=== PATIENT | female | born 1960 | race African-American/Black ===

== ENCOUNTER 2024-10-04 17:30 | Observation (INO) ==
[2024-10-04] MEDS ORDERED: NovoLIN R (or HumuLIN R) SUBCUT PRN (20:27)
[2024-10-04] MEDS: LR 1,000 ML IV 1,000 ML IV SCH (20:34)
[2024-10-04] MEDS: DILAUDID INJ IVP PRN (20:35)
[2024-10-04] MEDS: LOVENOX INJ 80 MG SYR SC SCH (21:25)
[2024-10-04] MEDS: LUMIGAN OPHTH EACHEYE SCH (22:23)
[2024-10-04] MEDS: ALPHAGAN-P OPHTH 1 DOSE EACHEYE SCH (23:22)
[2024-10-04] MEDS: ZYLOPRIM PO SCH (23:28)
[2024-10-04] MEDS: LIPITOR TAB 20 MG PO SCH (23:28)
[2024-10-04] MEDS: NEURONTIN TAB 600 MG PO SCH (23:28)
[2024-10-04] MEDS: ZESTRIL TAB 5 MG PO SCH (23:28)
--- NOTE | 2024-10-05 00:16 | DR.H&P ---
H&P History & Physical for Day of: H&P Date: 10/04/24 Chief Complaint Chief Complaint: Bi-Lateral lower extremity rest pain History of Present Illness History of Present Illness: This is a 64-year-old female who has had bilateral lower extremity arterial intervention for critical ischemia in both legs in the past. She was seen last week and Ashley Landeros in the emergency room complaining of severe rest pain. CT angiogram obtained showed bilateral superficial femoral artery occlusion. She was seen earlier this week in the office and we were planning arterial intervention of the left leg first and then the right leg. She was given Percocet for pain. We have been seeking preauthorization for the procedure. She called today complaining she had severe pain of both lower extremities that has not taken care of with the p.o. Percocet. She is admitted for observation, pain control and arterial invention of both legs to be done sequentially. Past Medical History Past Medical History: Diabetes, Dyslipidemia, Gout and Hypertension Additional Medical History: HIV + Past Surgical History Surgical History: Family History Family Medical History: Diabetes Mellitus and Hypertension Social History Does patient currently use any type of tobacco product: No Alcohol Use: Occasionally Drug Use: None Medications Home Medications: Home Medications Medication Instructions Recorded Confirmed Type alendronate 70 mg tablet 70 mg PO QWEEK 10/04/24 10/04/24 History allopurinol 100 mg tablet 100 mg PO HS 10/04/24 10/04/24 History aspirin 81 mg tablet,delayed 81 mg PO QDAY 10/04/24 10/04/24 History release atorvastatin 20 mg tablet 20 mg PO QDAY 10/04/24 10/04/24 History bimatoprost 0.01 % eye drops 1 drp ophthalmic (eye) HS 10/04/24 10/04/24 History (Lumigan) brimonidine 0.1 % eye drops 1 drp ophthalmic (eye) BID 10/04/24 10/04/24 History (Alphagan P) cetirizine 10 mg tablet 10 mg PO QDAY PRN 10/04/24 10/04/24 History clopidogrel 75 mg tablet 75 mg PO QDAY 10/04/24 10/04/24 History darunavir 800 mg tablet 800 mg PO QDAY 10/04/24 10/04/24 History dolutegravir 50 mg tablet (Tivicay) 50 mg PO QDAY 10/04/24 10/04/24 History ergocalciferol (vitamin D2) 1,250 1,250 mcg PO QWEEK 10/04/24 10/04/24 History mcg (50,000 unit) capsule ferrous sulfate 325 mg (65 mg 325 mg PO QDAY 10/04/24 10/04/24 History iron) tablet (FeroSul) folic acid 400 mcg tablet 0.4 mg PO QDAY 10/04/24 10/04/24 History gabapentin 600 mg tablet 600 mg PO HS 10/04/24 10/04/24 History lamivudine 100 mg tablet 100 mg PO QDAY 10/04/24 10/04/24 History lisinopril 5 mg tablet 5 mg PO BID 10/04/24 10/04/24 History lubiprostone 8 mcg capsule 8 mcg PO DAILY 10/04/24 10/04/24 History magnesium oxide 400 mg (241.3 mg 400 mg PO QDAY 10/04/24 10/04/24 History magnesium) tablet oxycodone-acetaminophen 5 mg-325 1 tab PO Q6H PRN pain 10/04/24 10/04/24 History mg tablet ritonavir 100 mg tablet 100 mg PO QDAY 10/04/24 10/04/24 History semaglutide 2 mg/dose (8 mg/3 mL) 2 mg subcut WEEKLY 10/04/24 10/04/24 History subcutaneous pen injector (Ozempic) Allergies Allergies Allergy/AdvReac Type Severity Reaction Status Date / Time No Known Drug Allergies Allergy Verified 11/02/21 06:54 Labs Labs: Laboratory POC Glucose (mg/dL) 112 mg/dL (65-99) H 10/04/24 20:20 Review of Systems Constitutional: See HPI Eyes: No Symptoms Reported ENT: No Symptoms Reported Respiratory: No Symptoms Reported Cardiovascular: No Symptoms Reported Gastrointestinal: No Symptoms Reported Genitourinary: No Symptoms Reported Musculoskeletal: No Symptoms Reported Skin: No Symptoms Reported Neurological: No Symptoms Reported Physical Exam Vital Signs: Vital Signs Temperature 97.9 F Pulse Rate [Right Brachial] 81 Respiratory Rate 18 Respiratory Rate 18 Respiratory Rate 18 Blood Pressure [Right Arm] 150/62 O2 Sat by Pulse Oximetry 100 Oriented: Normal, Time, Person and Place Eyes: Normal Ear: Normal Nose: Normal Throat: Normal Respiratory: Clear Throughout Cardiovascular: Normal and Other (Absent distal pulses both ankles) : Normal Auscultation: Bowel Sounds: Normal Palpation: Normal Tenderness: Normal Skin: Normal Musculoskeletal: Normal Psychiatric: Anxiety Mood Description: Anxious Affect: Normal Speech Pattern: Clear and Appropriate Assessment/Plan (1) Atherosclerosis of [place] arteries of extremities with rest pain, left leg: Status: Acute Plan: Patient has already had CAT scan. Will begin therapeutic Lovenox. Pain control with IV Dilaudid and plan arterial intervention first of the week (2) Atherosclerosis of [place] arteries of extremities with rest pain, right leg: Status: Acute Plan: Right leg arterial invention to be done sequentially after the left leg carried out (3) Type 2 diabetes mellitus without complications: Status: Acute Plan: 1800 calorie ADA diet, home meds and sliding scale insulin (4) Essential (primary) hypertension: Status: Acute Plan: home meds (5) Hyperlipidemia: Status: Acute Plan: home meds (6) HIV (human immunodeficiency virus infection): Status: Acute Plan: home meds (7) Gout: Status: Acute Plan: home meds Review H&P Reviewed: Yes Patient was examined?: Yes
[2024-10-05 05:30] LABS: BASOPHILS % (AUTO) 0.8 % (0.2-1.0); EOSINOPHILS # (AUTO) 0.2 x10^3/uL (0.0-0.2); EOSINOPHILS % (AUTO) 3.2 % (0.9-2.9); HEMOGLOBIN 7.8 g/dL (12.0-16.0); LYMPHOCYTES # (AUTO) 1.4 X10^3/uL (1.3-2.9); LYMPHOCYTES % (AUTO) 27.2 % (21.0-51.0); MEAN CORPUSCULAR HEMOGLOBIN 27.7 pg (27.0-34.0); MEAN CORPUSCULAR HGB CONC 33.9 g/dL (33.0-35.0); MEAN CORPUSCULAR VOLUME 81.8 fL (80.0-100.0); MEAN PLATELET VOLUME 7.3 fL (7.4-11.0); MONOCYTES # (AUTO) 0.3 x10^3/uL (0.3-0.8); MONOCYTES % (AUTO) 6.6 % (0.0-13.0); NEUTROPHILS # (AUTO) 3.2 x10^3/uL (2.2-4.8); NEUTROPHILS % (AUTO) 62.2 % (42.0-75.0); PLATELET COUNT 220 X10^3/uL (150.0-450.0); RED BLOOD COUNT 2.81 X10^6/uL (3.5-5.4); RED CELL DISTRIBUTION WIDTH 18.2 % (11.6-16.5); WHITE BLOOD COUNT 5.1 X10^3/uL (3.6-10.0)
[2024-10-05 05:48] LABS: ALANINE AMINOTRANSFERASE 22 Units/L (12-78); ALBUMIN 3.1 g/dL (3.4-5.0); ALKALINE PHOSPHATASE 67 Units/L (46-116); ASPARTATE AMINO TRANSFERASE 21 Units/L (15-37); BLOOD UREA NITROGEN 30 mg/dL (7-18); CALCIUM 9.4 mg/dL (8.5-10.1); CARBON DIOXIDE 29.2 mmol/L (21-32); CHLORIDE 102 mmol/L (98-107); COR CA(FOR HYPOALB) 10.1 mg/dL (8.5-10.1); CREATININE 1.59 mg/dL (0.55-1.02); GLUCOSE 88 mg/dL (65-99); POTASSIUM 4.1 mmol/L (3.5-5.1); SODIUM 139 mmol/L (136-145); TOTAL PROTEIN 7.3 g/dL (6.4-8.2); eGFR NON BLACK RACES 35 (>60)
[2024-10-05] MEDS: MAG-OX TAB PO SCH (06:08)
[2024-10-05] MEDS: ZyrTEC TAB 10 MG PO PRN (06:08)
[2024-10-05] MEDS: LOVENOX INJ 60 MG SYR SC SCH (06:54)
--- NOTE | 2024-10-05 07:58 | RAD ---
EXAM:CHEST, 1 VIEWHISTORY:pre op for left leg surgery; critical ischemiaCOMPARISON:No relevant prior studies were available for comparison at the time of interpretation.TECHNIQUE:CHEST, 1 VIEWFINDINGS:Chest:Lines and tubes: NoneMediastinum: Cardiac and mediastinal shadow is within normal limits for size and contour.Pulmonary vessels: No pulmonary vascular congestion.Lung [place]: No suspicious airspace opacity.Pleura: No effusion. No pneumothorax.Bones and soft tissues: No acute osseous or soft tissue abnormality.IMPRESSION:1. No acute cardiopulmonary abnormalityTHIS IS AN ELECTRONICALLY VERIFIED FINAL REPORT10/05/2024 7:54 AM - Electronically signed by Adriano Blue MD
[2024-10-05] MEDS: ASPIRIN EC 81 MG PO SCH (08:55)
[2024-10-05] MEDS: HEMOCYTE PLUS PO SCH (08:55)
[2024-10-05] MEDS: PLAVIX PO SCH (08:55)
[2024-10-05] MEDS: ALPHAGAN P 0.15% OPHTH SOLN AFFEYE SCH (08:55)
[2024-10-05] MEDS: PATIENT'S HOME MEDICATION PO SCH ×6 (10:10→10:11)
[2024-10-05 20:35] VITALS: BMI 20.5
[2024-10-05] MEDS: SNACK - Diabetic Appropriate PO SCH (21:27)
[2024-10-06 06:12] LABS: BASOPHILS % (AUTO) 0.8 % (0.2-1.0); EOSINOPHILS # (AUTO) 0.2 x10^3/uL (0.0-0.2); EOSINOPHILS % (AUTO) 2.9 % (0.9-2.9); HEMATOCRIT 22.5 % (36.0-47.0); HEMOGLOBIN 7.5 g/dL (12.0-16.0); LYMPHOCYTES # (AUTO) 1.7 X10^3/uL (1.3-2.9); LYMPHOCYTES % (AUTO) 27.4 % (21.0-51.0); MEAN CORPUSCULAR HEMOGLOBIN 27.4 pg (27.0-34.0); MEAN CORPUSCULAR HGB CONC 33.4 g/dL (33.0-35.0); MEAN PLATELET VOLUME 7.7 fL (7.4-11.0); MONOCYTES # (AUTO) 0.3 x10^3/uL (0.3-0.8); MONOCYTES % (AUTO) 5.1 % (0.0-13.0); NEUTROPHILS # (AUTO) 3.9 x10^3/uL (2.2-4.8); NEUTROPHILS % (AUTO) 63.8 % (42.0-75.0); PLATELET COUNT 243 X10^3/uL (150.0-450.0); RED BLOOD COUNT 2.74 X10^6/uL (3.5-5.4); RED CELL DISTRIBUTION WIDTH 17.9 % (11.6-16.5); WHITE BLOOD COUNT 6.1 X10^3/uL (3.6-10.0)
[2024-10-06 06:26] LABS: ALANINE AMINOTRANSFERASE 21 Units/L (12-78); ALBUMIN 2.9 g/dL (3.4-5.0); ALKALINE PHOSPHATASE 74 Units/L (46-116); ASPARTATE AMINO TRANSFERASE 23 Units/L (15-37); BLOOD UREA NITROGEN 30 mg/dL (7-18); CARBON DIOXIDE 28.5 mmol/L (21-32); CHLORIDE 102 mmol/L (98-107); COR CA(FOR HYPOALB) 9.9 mg/dL (8.5-10.1); CREATININE 1.59 mg/dL (0.55-1.02); GLUCOSE 85 mg/dL (65-99); POTASSIUM 4.3 mmol/L (3.5-5.1); SODIUM 139 mmol/L (136-145); TOTAL PROTEIN 7.2 g/dL (6.4-8.2); eGFR NON BLACK RACES 35 (>60)
[2024-10-06] MEDS ORDERED: PATIENT'S HOME MEDICATION PO PRN (08:56)
[2024-10-06] MEDS: PATIENT'S HOME MEDICATION PO SCH ×6 (09:40→20:44)
[2024-10-06] MEDS: MAALOX or MYLANTA PO PRN (10:53)
[2024-10-06 16:39] LABS: HEMATOCRIT 22.2 % (36.0-47.0); HEMOGLOBIN 7.5 g/dL (12.0-16.0)
--- NOTE | 2024-10-06 23:09 | NOTE.SOAP ---
Soap Note Note for Day of Date of Exam: 10/05/24 Subjective Data Subjective Data: Patient discussed with nursing services. Pain under better control with IV narcotics. Objective Data Temperature: 98.0 F Pulse Rate: 94 Respiratory Rate: 18 Blood Pressure: 150/80 O2 Sat by Pulse Oximetry: 93 Objective Data: Pain improved with administration of IV narcotics. Leg hurts the most is the left. This is why she was seen in the emergency room in [place] recently. Assessment Assessment: Documented bilateral superficial femoral artery occlusions consistent with rest pain bilaterally. Plan Plan: Tentatively plan intervention of the left leg on TuesdayOctober 08
--- NOTE | 2024-10-06 23:14 | NOTE.SOAP ---
Soap Note Note for Day of Date of Exam: 10/06/24 Subjective Data Subjective Data: Pain improved but main complaint is the left leg consistent with rest pain. Known bilateral superficial femoral artery occlusions. Objective Data Temperature: 98.0 F Pulse Rate: 94 Blood Pressure: 150/80 O2 Sat by Pulse Oximetry: 93 Objective Data: Both feet cool to touch , no tissue loss, no palpable ankle pulses either leg Assessment Assessment: Bilateral lower extremity rest pain with known bilateral superficial femoral artery occlusions Plan Plan: Continue Lovenox and plan an intervention of the left leg first on October 08
[2024-10-07 05:50] LABS: BASOPHILS % (AUTO) 0.6 % (0.2-1.0); EOSINOPHILS # (AUTO) 0.1 x10^3/uL (0.0-0.2); EOSINOPHILS % (AUTO) 1.5 % (0.9-2.9); HEMOGLOBIN 7.8 g/dL (12.0-16.0); LYMPHOCYTES # (AUTO) 2.2 X10^3/uL (1.3-2.9); LYMPHOCYTES % (AUTO) 29.9 % (21.0-51.0); MEAN CORPUSCULAR HEMOGLOBIN 27.5 pg (27.0-34.0); MEAN CORPUSCULAR HGB CONC 33.8 g/dL (33.0-35.0); MEAN CORPUSCULAR VOLUME 81.3 fL (80.0-100.0); MEAN PLATELET VOLUME 7.9 fL (7.4-11.0); MONOCYTES # (AUTO) 0.3 x10^3/uL (0.3-0.8); MONOCYTES % (AUTO) 4.3 % (0.0-13.0); NEUTROPHILS # (AUTO) 4.8 x10^3/uL (2.2-4.8); NEUTROPHILS % (AUTO) 63.7 % (42.0-75.0); PLATELET COUNT 241 X10^3/uL (150.0-450.0); RED BLOOD COUNT 2.83 X10^6/uL (3.5-5.4); RED CELL DISTRIBUTION WIDTH 18.3 % (11.6-16.5); WHITE BLOOD COUNT 7.5 X10^3/uL (3.6-10.0)
[2024-10-07 06:07] LABS: ALANINE AMINOTRANSFERASE 22 Units/L (12-78); ALBUMIN 2.8 g/dL (3.4-5.0); ALKALINE PHOSPHATASE 73 Units/L (46-116); ASPARTATE AMINO TRANSFERASE 30 Units/L (15-37); BLOOD UREA NITROGEN 18 mg/dL (7-18); CALCIUM 9.1 mg/dL (8.5-10.1); CARBON DIOXIDE 29.6 mmol/L (21-32); CHLORIDE 104 mmol/L (98-107); COR CA(FOR HYPOALB) 10.1 mg/dL (8.5-10.1); CREATININE 1.32 mg/dL (0.55-1.02); GLUCOSE 81 mg/dL (65-99); POTASSIUM 4.3 mmol/L (3.5-5.1); SODIUM 140 mmol/L (136-145); TOTAL PROTEIN 7.1 g/dL (6.4-8.2); eGFR NON BLACK RACES 43 (>60)
[2024-10-07] MEDS ORDERED: PATIENT'S HOME MEDICATION PO SCH (09:00)
[2024-10-07] MEDS ORDERED: VITAMIN D (1.25MG) PO SCH (09:00)
[2024-10-07] MEDS: HIBICLENS WASH EXT ONE (20:15)
--- NOTE | 2024-10-07 23:10 | NOTE.SOAP ---
Soap Note Note for Day of Date of Exam: 10/07/24 Subjective Data Subjective Data: Patient admitted with bilateral lower extremity rest pain. She has had bilateral arterial revisions in the past. Recent CT angiogram showed shows bilateral superficial femoral artery occlusion. Left side is the worst. Objective Data Temperature: 98.1 F Pulse Rate: 80 Respiratory Rate: 19 Blood Pressure: 146/65 O2 Sat by Pulse Oximetry: 96 Objective Data: Both feet cool to touch. No palpable pulses distally. Palpable femoral pulses bilaterally. No open wounds. Assessment Assessment: Cortical ischemia both legs with bilateral superficial femoral artery occlusion. Plan Plan: Plan arterial invention of the left leg tomorrow with atherectomy, angioplasty possible stenting of the right superficial femoral artery occlusion.
[2024-10-08 04:51] LABS: BASOPHILS # (AUTO) 0.1 X10^3/uL (0.0-0.1); BASOPHILS % (AUTO) 0.8 % (0.2-1.0); EOSINOPHILS # (AUTO) 0.1 x10^3/uL (0.0-0.2); EOSINOPHILS % (AUTO) 1.7 % (0.9-2.9); HEMOGLOBIN 7.1 g/dL (12.0-16.0); LYMPHOCYTES # (AUTO) 1.4 X10^3/uL (1.3-2.9); LYMPHOCYTES % (AUTO) 20.5 % (21.0-51.0); MEAN CORPUSCULAR HEMOGLOBIN 27.4 pg (27.0-34.0); MEAN CORPUSCULAR HGB CONC 33.7 g/dL (33.0-35.0); MEAN CORPUSCULAR VOLUME 81.4 fL (80.0-100.0); MEAN PLATELET VOLUME 7.9 fL (7.4-11.0); MONOCYTES # (AUTO) 0.3 x10^3/uL (0.3-0.8); MONOCYTES % (AUTO) 4.4 % (0.0-13.0); NEUTROPHILS # (AUTO) 4.9 x10^3/uL (2.2-4.8); NEUTROPHILS % (AUTO) 72.6 % (42.0-75.0); PLATELET COUNT 253 X10^3/uL (150.0-450.0); RED BLOOD COUNT 2.58 X10^6/uL (3.5-5.4); RED CELL DISTRIBUTION WIDTH 18.2 % (11.6-16.5); WHITE BLOOD COUNT 6.8 X10^3/uL (3.6-10.0)
[2024-10-08 05:09] LABS: ALANINE AMINOTRANSFERASE 22 Units/L (12-78); ALBUMIN 2.5 g/dL (3.4-5.0); ALKALINE PHOSPHATASE 74 Units/L (46-116); ASPARTATE AMINO TRANSFERASE 31 Units/L (15-37); BLOOD UREA NITROGEN 17 mg/dL (7-18); CALCIUM 8.6 mg/dL (8.5-10.1); CHLORIDE 102 mmol/L (98-107); COR CA(FOR HYPOALB) 9.8 mg/dL (8.5-10.1); CREATININE 1.47 mg/dL (0.55-1.02); GLUCOSE 97 mg/dL (65-99); POTASSIUM 4.4 mmol/L (3.5-5.1); SODIUM 138 mmol/L (136-145); TOTAL PROTEIN 6.6 g/dL (6.4-8.2); eGFR NON BLACK RACES 38 (>60)
[2024-10-08] MEDS: NS 1,000 ML IV 1,000 ML ONE (06:59)
[2024-10-08] MEDS: NS 100 ML IV 100 ML ONE (07:09)
[2024-10-08] MEDS: NS 1,000 ML IV 800 ML IV PRN (07:30)
[2024-10-08] MEDS: VERSED IVP PRN (07:35)
[2024-10-08] MEDS: ZOFRAN INJ 4 MG VIAL IVP PRN (07:37)
[2024-10-08] MEDS: PEPCID 20 MG VIAL IVP PRN (07:39)
[2024-10-08] MEDS: ANCEF VIAL 1 GRAM ONE (07:39)
[2024-10-08] MEDS: REGLAN INJ 10 MG VIAL IVP PRN (07:40)
[2024-10-08] MEDS: ANCEF VIAL 1 GRAM IV PRN (07:44)
[2024-10-08] MEDS: FENTANYL VIAL INJ 100 mcg ONE (07:44)
[2024-10-08] MEDS: DIPRIVAN VIAL 20 ML ONE (07:44)
[2024-10-08] MEDS: PRECEDEX INJ VIAL ONE (07:44)
[2024-10-08] MEDS: PEPCID 20 MG VIAL ONE (07:44)
[2024-10-08] MEDS: VERSED ONE (07:44)
[2024-10-08] MEDS: ZOFRAN INJ 4 MG VIAL ONE (07:44)
[2024-10-08] MEDS: REGLAN INJ 10 MG VIAL ONE (07:44)
[2024-10-08] MEDS: OFIRMEV IV 1000 MG VIAL 1,000 MG/100 ML VIAL IV ONE (07:44)
[2024-10-08] MEDS: DIPRIVAN IVP PRN (07:53)
[2024-10-08] MEDS ORDERED: XYLOCAINE 2 % (PLAIN) PRN (07:53)
[2024-10-08] MEDS ORDERED: KETAMINE HCL PRN (07:54)
[2024-10-08] MEDS: PRECEDEX INJ VIAL IVP PRN (07:54)
[2024-10-08] MEDS: NEO-SYNEPHRINE INJ ONE (08:08)
[2024-10-08] MEDS: ROBINUL ONE (08:08)
[2024-10-08] MEDS: HEPARIN 1,000 UNIT/500 ML-NS 3,000 UNIT/1,500 ML IV.SOLN ONE (08:09)
[2024-10-08] MEDS: MARCAINE 0.5% ONE (08:09)
[2024-10-08] MEDS: VISIPAQUE 100 ML ONE (08:10)
[2024-10-08] MEDS: VISIPAQUE 50 ML ONE (08:10)
[2024-10-08] MEDS: HEPARIN SODIUM INJ 5000 UNITS ONE (08:12)
[2024-10-08] MEDS: OFIRMEV IV 1000 MG VIAL 1,000 MG/100 ML VIAL IV PRN (08:14)
[2024-10-08] MEDS: ROBINUL IVP PRN (08:19)
[2024-10-08] MEDS: DECADRON INJ ONE (08:19)
[2024-10-08] MEDS: DECADRON INJ IVP PRN (08:21)
[2024-10-08] MEDS: FENTANYL VIAL INJ 100 mcg IVP PRN (08:51)
[2024-10-08] MEDS ORDERED: DIPRIVAN VIAL 20 ML ONE (08:57)
[2024-10-08] MEDS ORDERED: HEPARIN SODIUM INJ 5000 UNITS IVP PRN (09:12)
[2024-10-08] MEDS ORDERED: TORADOL 30 MG VIAL ONE (09:26)
[2024-10-08] MEDS: NEO-SYNEPHRINE INJ IVP PRN (09:27)
[2024-10-08] MEDS: TORADOL 30 MG VIAL IVP PRN (09:40)
[2024-10-08] MEDS: NARCAN INJ IVP ONE (10:23)
--- NOTE | 2024-10-08 11:10 | OR.IMMED ---
IMMEDIATE POST-OP NOTE Immediate Post-Op Note Date of surgery/procedure: 10/08/24 Pre-Op Diagnosis: Critical ischemia left leg documented left superficial femoral artery by CTA Post-Op Diagnosis: Same, see findings Procedure: Aortogram, arteriogram left lower extremity, angioplasty left anterior tibial artery atherectomy and drug-coated balloon angioplasty and subsequent stenting of the left superficial femoral artery in 2 locations, Description of Procedure: dictated Surgeon/Commercial Marketing Specialist: Ander Agustin MD, FACS Findings: Completely occluded stents of the entire left superficial femoral artery, significant disease of the left popliteal artery, only runoff to the ankle was via the anterior tibial artery which was occluded distally with severe disease proximal posterior tibial artery occluded from its takeoff. Peroneal artery occluded distally Estimated Blood Loss: 100cc Complications: none Progress Notes: Patient returned to the floor. Hopefully can discharge later today. Right leg needs to be done as an outpatient
[2024-10-08] MEDS: NARCAN INJ ONE (11:40)
--- NOTE | 2024-10-08 12:20 | DR.OPNOTE ---
OP NOTE Pre-Op Diagnosis: Critical ischemia left leg, known left superficial femoral artery occlusion Post-Op Diagnosis: same,see findings Procedure Date Date Of Procedure: 10/08/24 Procedure: PROCEDURE: Diagnostic aortogram, diagnostic arteriogram left leg, atherectomy and drug-coated balloon angioplasty of previously placed left superficial femoral artery stents, stenting of the takeoff of the proximal left superficial femoral artery, repeat restenting of the midportion of the left superficial femoral artery, angioplasty of the left anterior tibial and dorsalis pedis arteries NARRATIVE: The patient was taken to the operative suite and placed in the supine position. The right groin and entire left leg were prepped and draped in sterile fashion. Patient was given intravenous sedation supervised by myself. Timeout for the procedure obtained. Ultrasound used to identify the femoral artery in the right groin and the skin overlying it infiltrated with 0.5% Marcaine. Ultrasound used to guide puncture of the right femoral artery and a 0 .012 inch guidewire placed. Incision made over the guidewire at the skin edge with a #11 knife blade and the micro sheath placed over the guidewire into the femoral artery. Small wire exchanged for a 0.035 inch Advantage Glidewire and the micro sheath exchanged for a 5 [place] vascular sheath. Patient given 5000 units of intravenous heparin. Omni catheter placed over the guidewire into the aorta and power injector used to perform aortogram showing normal aorta and iliac arteries bilaterally. The Omni catheter was then used to direct the guidewire down the left common iliac artery to the distal left external iliac artery. The Omni catheter exchanged for a [place] catheter and sequential arteriograms performed of the left leg showing completely occluded left superficial femoral artery stents from its takeoff to the knee joint, mall diseased popliteal artery, occluded posterior tibial and peroneal arteries, diseased anterior tibial artery at its takeoff and distally with complete o cclusion before entering the dorsalis pedis artery Anterior tibial artery is only runoff to the ankle. The Riverview catheter removed and over the guidewire the 5 [place] sheath was exchanged for a 7 [place] Catpult Sheath which was parked left external iliac artery. Riverview catheter and the 0.035 guidewire used to traverse the arteries of the left leg ultimately ending in left anterior tibial artery and taken all the way to the ankle into the left foot. This required changing to a 0.018 inch wire and a 0.018 inch Riverview catheter. Riverview catheter used to exchange 0.018 inch wire for a 0.014 inch Thruway wire. Over the Thruway wire we used the VitalsGuard atherectomy device to perform atherectomy of all the stents of the left superficial femoral artery. We then ballooned the distal left anterior tibial artery into the dorsalis pedis with a Fahad 2 mm x 2020 mm balloon. This also used to balloon dilate the proximal anterior tibial artery. We then balloon dilated the popliteal artery with a 4 mm x 100 mm drug coated [place] balloon inflated for 3 minutes. The stents in the left superficial artery were divided dilated with a 5 mm x 200 mm, 6 mm x 200 mm and 6 mm x 40 mm [place] [employer] [place] balloons. All inflated for 3 minutes then removed. Post procedure arteriogram showed continued disease at takeoff of the left superficial femoral artery and in the midportion of the stents of the left superficial femoral artery. Another stent is placed in midportion of the previously placed stents measuring 7 mm x 80 mm and is allowed to self expand. Repeat arteriogram showed excellent flow through this. Proximal left superficial artery had a 7 mm x 60 mm stent placed and this dilated with a 7 mm balloon showing excellent flow. After arterial intervention follow-up arteriogram performed showing maximal allowed flow to the left foot, the wires and devices removed from the [place] sheath. This sheath pulled back into the aorta and a 0.035 guidewire placed. Cat[place] sheath exchanged over the wire for a Angio-Seal device used to close the puncture of the right femoral artery. Patient taken to same-day surgery in good condition. Type of Anesthesia: Local (0.5% Marcaine ) Anesthesia Comment: plus MAC Findings: Completely occluded stents of the left superficial femoral artery, small diseased left popliteal artery. Only runoff to the ankle is a diseased anterior tibial artery with significant stenosis at the proximal takeoff and distally going into the foot creating the dorsalis pedis artery. Posterior tibial artery occluded at its takeoff all the way to the ankle. Peroneal artery occluded in its midportion with no reconstitution distally. Type of Fluids Used:: Lactated Ringers Total Amount of Fluid Infused:: 800cc Urine output: 800cc EBL: < 100 cc Hardware: Janessa 7 millimeter by 80 mm stent, Janessa 7 mm x 60 mm stent deployed in the superficial femoral artery Complications:: none Needle/Sponge Count:: correct Disposition/Condition: Pt. tolerated procedure without difficulty. Taken to floor in stable condition.
--- NOTE | 2024-10-08 12:49 | W.DIS.FURT ---
Summary of Discharge Discharge Summary of Date Date of Exam: 10/08/24 Admission Date Date of Admission: 10/04/24 Admission Diagnosis Hospital Course: This is a 64-year-old female who has had bilateral lower extreme arterial interventions in the past. Presented recently with left-sided rest pain of the lower extremity to [facility] in [place], [place]. Patient had CT angiogram obtained showing bilateral superficial femoral artery occlusions. This was new. Patient was seen in the office after that and originally scheduled for elective intervention of the left leg and then sequentially to have the right leg done. However ,she had continued severe rest pain and was admitted on October 04. She was placed on therapeutic subcutaneous Lovenox and given Dilaudid IV for pain. On October 08 she underwent arterial in tervention of the left leg with angioplasty of the left anterior tibial artery and dorsalis pedis with atherectomy, drug-coated balloon angioplasty and stenting of the previous placed stents in the left superficial femoral artery. She has restored flow to the left foot however only runoff is the anterior tibial artery. She is tolerating a diet and is not complaining of pain. She will be discharged today in on her usual medications to include Plavix 75 mg daily and aspirin 81 mg daily and Percocet 5 mg tablets q 6 hours PRN Pain. We will schedule her to have the right superficial artery intervened upon in the very near future. Vital Signs: Vital Signs (72 hours) 10/06/24 23:09 10/07/24 23:10 10/06/24 23:14 Temperature 98.0 F 98.1 F 98.0 F Pulse Rate 94 H 80 94 H Pulse Rate [Right Brachial] Respiratory Rate 18 19 Blood Pressure 150/80 146/65 150/80 Blood Pressure [Right Arm] O2 Sat by Pulse Oximetry 93 L 96 93 L Oxygen Delivery Method Oxygen Flow Rate FIO2% 10/05/24 13:52 10/05/24 14:22 10/05/24 16:00 Temperature 98.3 F Pulse Rate Pulse Rate [Right Brachial] 68 Respiratory Rate 18 18 17 Blood Pressure Blood Pressure [Right Arm] 117/58 O2 Sat by Pulse Oximetry 98 Oxygen Delivery Method Room Air Oxygen Flow Rate FIO2% 10/05/24 17:03 10/05/24 17:33 10/05/24 20:00 Temperature 98.1 F Pulse Rate Pulse Rate [Right Brachial] 81 Respiratory Rate 18 18 16 Blood Pressure Blood Pressure [Right Arm] 130/60 O2 Sat by Pulse Oximetry 100 Oxygen Delivery Method Room Air Oxygen Flow Rate FIO2% 21 10/05/24 19:00 10/05/24 23:27 10/06/24 00:00 Temperature 97.9 F Pulse Rate Pulse Rate [Right Brachial] 78 Respiratory Rate 18 18 Blood Pressure Blood Pressure [Right Arm] 114/58 O2 Sat by Pulse Oximetry 98 Oxygen Delivery Method Room Air Room Air Oxygen Flow Rate FIO2% 10/06/24 04:00 10/05/24 23:57 10/06/24 06:28 Temperature 97.9 F Pulse Rate Pulse Rate [Right Brachial] 78 Respiratory Rate 18 18 20 Blood Pressure Blood Pressure [Right Arm] 157/70 O2 Sat by Pulse Oximetry 100 Oxygen Delivery Method Oxygen Flow Rate FIO2% 10/06/24 07:00 10/06/24 08:00 10/06/24 10:42 Temperature 99.1 F Pulse Rate Pulse Rate [Right Brachial] 96 H Respiratory Rate 19 19 Blood Pressure Blood Pressure [Right Arm] 148/66 O2 Sat by Pulse Oximetry 91 L Oxygen Delivery Method Room Air Room Air Oxygen Flow Rate FIO2% 10/06/24 12:00 10/06/24 16:00 10/06/24 19:13 Temperature 98.1 F 97.5 F L Pulse Rate Pulse Rate [Right Brachial] 76 77 Respiratory Rate 19 18 19 Blood Pressure Blood Pressure [Right Arm] 108/54 126/60 O2 Sat by Pulse Oximetry 93 L 94 L Oxygen Delivery Method Room Air Room Air Oxygen Flow Rate FIO2% 10/06/24 23:02 10/06/24 19:43 10/06/24 19:00 Temperature Pulse Rate Pulse Rate [Right Brachial] Respiratory Rate 16 21 Blood Pressure Blood Pressure [Right Arm] O2 Sat by Pulse Oximetry Oxygen Delivery Method Room Air Oxygen Flow Rate FIO2% 10/06/24 20:00 10/06/24 20:55 10/06/24 23:46 Temperature 98.1 F 98.5 F Pulse Rate Pulse Rate [Right Brachial] 94 H 88 Respiratory Rate 18 16 Blood Pressure Blood Pressure [Right Arm] 182/81 150/80 152/68 O2 Sat by Pulse Oximetry 93 L Oxygen Delivery Method Room Air Oxygen Flow Rate 96 FIO2% 10/06/24 23:32 10/07/24 04:55 10/07/24 04:00 Temperature 98.3 F Pulse Rate Pulse Rate [Right Brachial] 81 Respiratory Rate 16 16 16 Blood Pressure Blood Pressure [Right Arm] 160/65 O2 Sat by Pulse Oximetry 97 Oxygen Delivery Method Room Air Oxygen Flow Rate FIO2% 10/07/24 05:30 10/07/24 05:25 10/07/24 09:37 Temperature Pulse Rate Pulse Rate [Right Brachial] Respiratory Rate 16 21 Blood Pressure Blood Pressure [Right Arm] 155/80 O2 Sat by Pulse Oximetry Oxygen Delivery Method Oxygen Flow Rate FIO2% 10/07/24 07:00 10/07/24 08:00 10/07/24 12:00 Temperature 98.0 F 97.5 F L Pulse Rate Pulse Rate [Right Brachial] 76 77 Respiratory Rate 19 18 Blood Pressure Blood Pressure [Right Arm] 135/63 143/61 O2 Sat by Pulse Oximetry 95 96 Oxygen Delivery Method Room Air Room Air Room Air Oxygen Flow Rate FIO2% 10/07/24 10:07 10/07/24 13:50 10/07/24 16:00 Temperature 97.9 F Pulse Rate Pulse Rate [Right Brachial] 82 Respiratory Rate 18 20 17 Blood Pressure Blood Pressure [Right Arm] 142/71 O2 Sat by Pulse Oximetry 92 L Oxygen Delivery Method Room Air Oxygen Flow Rate FIO2% 10/07/24 14:20 10/07/24 18:09 10/07/24 18:39 Temperature Pulse Rate Pulse Rate [Right Brachial] Respiratory Rate 20 20 19 Blood Pressure Blood Pressure [Right Arm] O2 Sat by Pulse Oximetry Oxygen Delivery Method Oxygen Flow Rate FIO2% 10/07/24 19:00 10/07/24 20:00 10/07/24 22:02 Temperature 98.1 F Pulse Rate Pulse Rate [Right Brachial] 80 Respiratory Rate 18 15 Blood Pressure Blood Pressure [Right Arm] 146/65 O2 Sat by Pulse Oximetry 96 Oxygen Delivery Method Room Air Room Air Oxygen Flow Rate FIO2% 10/08/24 03:02 10/07/24 22:31 10/07/24 23:16 Temperature 97.8 F Pulse Rate Pulse Rate [Right Brachial] 73 Respiratory Rate 19 15 18 Blood Pressure Blood Pressure [Right Arm] 117/56 O2 Sat by Pulse Oximetry 94 L Oxygen Delivery Method Room Air Oxygen Flow Rate FIO2% 10/08/24 04:00 10/08/24 03:32 10/08/24 07:09 Temperature 98.0 F Pulse Rate Pulse Rate [Right Brachial] 80 Respiratory Rate 16 19 18 Blood Pressure Blood Pressure [Right Arm] 115/55 O2 Sat by Pulse Oximetry 100 Oxygen Delivery Method Room Air Oxygen Flow Rate FIO2% 10/08/24 07:30 Temperature Pulse Rate 81 Pulse Rate [Right Brachial] Respiratory Rate 20 Blood Pressure 168/80 Blood Pressure [Right Arm] O2 Sat by Pulse Oximetry 98 Oxygen Delivery Method Room Air Oxygen Flow Rate FIO2% Labs: Laboratory Last Values WBC 6.8 X10^3/uL (3.6-10.0) 10/08/24 04:10 RBC 2.58 X10^6/uL (3.5-5.4) L 10/08/24 04:10 Hgb 7.1 g/dL (12.0-16.0) L 10/08/24 04:10 Hct 21.0 % (36.0-47.0) L 10/08/24 04:10 MCV 81.4 fL (80.0-100.0) 10/08/24 04:10 MCH 27.4 pg (27.0-34.0) 10/08/24 04:10 MCHC 33.7 g/dL (33.0-35.0) 10/08/24 04:10 RDW 18.2 % (11.6-16.5) H 10/08/24 04:10 Plt Count 253 X10^3/uL (150.0-450.0) 10/08/24 04:10 MPV 7.9 fL (7.4-11.0) 10/08/24 04:10 Neut % (Auto) 72.6 % (42.0-75.0) 10/08/24 04:10 Lymph % (Auto) 20.5 % (21.0-51.0) L 10/08/24 04:10 [place] % (Auto) 4.4 % (0.0-13.0) 10/08/24 04:10 Eos % (Auto) 1.7 % (0.9-2.9) 10/08/24 04:10 Baso % (Auto) 0.8 % (0.2-1.0) 10/08/24 04:10 Neut # (Auto) 4.9 x10^3/uL (2.2-4.8) H 10/08/24 04:10 Lymph # (Auto) 1.4 X10^3/uL (1.3-2.9) 10/08/24 04:10 [place] # (Auto) 0.3 x10^3/uL (0.3-0.8) 10/08/24 04:10 Eos # (Auto) 0.1 x10^3/uL (0.0-0.2) 10/08/24 04:10 Baso # (Auto) 0.1 X10^3/uL (0.0-0.1) 10/08/24 04:10 Absolute Nucleated RBC 0.1 /100WBC 10/08/24 04:10 Sodium 138 mmol/L (136-145) 10/08/24 04:10 Corrected Sodium TNP 10/08/24 04:10 Potassium 4.4 mmol/L (3.5-5.1) 10/08/24 04:10 Chloride 102 mmol/L (98-107) 10/08/24 04:10 Carbon Dioxide 30.0 mmol/L (21-32) 10/08/24 04:10 BUN 17 mg/dL (7-18) 10/08/24 04:10 Creatinine 1.47 mg/dL (0.55-1.02) H 10/08/24 04:10 Est GFR (MDRD) Af Amer 46 (>60) L 10/08/24 04:10 Est GFR (MDRD) Non-Af 38 (>60) L 10/08/24 04:10 Glucose 97 mg/dL (65-99) 10/08/24 04:10 POC Glucose (mg/dL) 111 mg/dL (65-99) H 10/08/24 11:30 Calcium 8.6 mg/dL (8.5-10.1) 10/08/24 04:10 Corrected Calcium 9.8 mg/dL (8.5-10.1) 10/08/24 04:10 Total Bilirubin 0.30 mg/dL (0.2-1.0) 10/08/24 04:10 AST 31 Units/L (15-37) 10/08/24 04:10 ALT 22 Units/L (12-78) 10/08/24 04:10 Alkaline Phosphatase 74 Units/L (46-116) 10/08/24 04:10 Total Protein 6.6 g/dL (6.4-8.2) 10/08/24 04:10 Albumin 2.5 g/dL (3.4-5.0) L 10/08/24 04:10 Globulin 4.1 g/dL (2.5-4.5) 10/08/24 04:10 Albumin/Globulin Ratio 0.6 Ratio (1.1-2.1) L 10/08/24 04:10 Blood Type O POSITIVE 10/06/24 15:59 Antibody Screen Negative 10/06/24 15:59 Reason For Visit: CRITICAL ISCHEMIA BLE Discharge Date Discharge Date: 10/08/24 Discharge Diagnosis All Active Problems (Updated 10/05/24 @ 00:15 by Ander Agustin) Gout (Acute) HIV (human immunodeficiency virus infection) (Acute) Hyperlipidemia (Acute) Essential (primary) hypertension (Acute) Type 2 diabetes mellitus without complications (Acute) Atherosclerosis of [place] arteries of extremities with rest pain, right leg (Acute) Atherosclerosis of [place] arteries of extremities with rest pain, left leg (Acute) Plan of Treatment: Continue with present treatment and follow up plan. Pt is to keep follow up appointment as instructed and take medications as ordered. Discharge Medications Discharge Medications: No Known Drug Allergies Allergy (Verified 11/02/21 06:54) CONTINUE taking the following medications alendronate 70 mg tablet 70 mg PO QWEEK 10/04/24 [History] allopurinol 100 mg tablet 100 mg PO HS 10/04/24 [History] aspirin 81 mg tablet,delayed release 81 mg PO QDAY 10/04/24 [History] atorvastatin 20 mg tablet 20 mg PO QDAY 10/04/24 [History] bimatoprost 0.01 % eye drops (Lumigan) 1 drp ophthalmic (eye) HS 10/04/24 [History] brimonidine 0.1 % eye drops (Alphagan P) 1 drp ophthalmic (eye) BID 10/04/24 [History] cetirizine 10 mg tablet 10 mg PO QDAY PRN 10/04/24 [History] clopidogrel 75 mg tablet 75 mg PO QDAY 10/04/24 [History] darunavir 800 mg tablet 800 mg PO QDAY 10/04/24 [History] dolutegravir 50 mg tablet (Tivicay) 50 mg PO QDAY 10/04/24 [History] ergocalciferol (vitamin D2) 1,250 mcg (50,000 unit) capsule 1,250 mcg PO QWEEK 10/04/24 [History] ferrous sulfate 325 mg (65 mg iron) tablet (FeroSul) 325 mg PO QDAY 10/04/24 [History] folic acid 400 mcg tablet 0.4 mg PO QDAY 10/04/24 [History] gabapentin 600 mg tablet 600 mg PO HS 10/04/24 [History] lamivudine 100 mg tablet 100 mg PO QDAY 10/04/24 [History] lisinopril 5 mg tablet 5 mg PO BID 10/04/24 [History] lubiprostone 8 mcg capsule 8 mcg PO DAILY 10/04/24 [History] magnesium oxide 400 mg (241.3 mg magnesium) tablet 400 mg PO QDAY 10/04/24 [H istory] oxycodone-acetaminophen 5 mg-325 mg tablet 1 tab PO Q6H PRN pain 10/04/24 [History] ritonavir 100 mg tablet 100 mg PO QDAY 10/04/24 [History] semaglutide 2 mg/dose (8 mg/3 mL) subcutaneous pen injector (Ozempic) 2 mg subcut WEEKLY 10/04/24 [History] Discharge Disposition Assessment: see hospital course Discharge Plan Discharge Plan Hospital Course: This is a 64-year-old female who has had bilateral lower extreme arterial interventions in the past. Presented recently with left-sided rest pain of the lower extremity to [facility] in [place], [place]. Patient had CT angiogram obtained showing bilateral superficial femoral artery occlusio ns. This was new. Patient was seen in the office after that and originally scheduled for elective intervention of the left leg and then sequentially to have the right leg done. However ,she had continued severe rest pain and was admitted on October 04. She was placed on therapeutic subcutaneous Lovenox and given Dilaudid IV for pain. On October 08 she underwent arterial intervention of the left leg with angioplasty of the left anterior tibial artery and dorsalis pedis with atherectomy, drug-coated balloon angioplasty and stenting of the previous placed stents in the left superficial femoral artery. She has restored flow to the left foot however only runoff is the anterior tibial artery. She is tolerating a diet and is not complaining of pain. She will be discharged today in on her usual medications to include Plavix 75 mg daily and aspirin 81 mg daily and Percocet 5 mg tablets q 6 hours PRN Pain. We will schedule her to have the right superficial artery intervened upon in the very near future. Patient Disposition: 01 HOME, SELF-CARE Condition: Stable Health Concerns: Post Hospitalization: new medications and changes needed to prevent readmission or further decline. Pt educated and given instructions on all concerns. Care Plan Goals: Problem: Infection Goal: Temperature within normal limits. Resolved infection. Instructions: Follow provided instructions. Follow up with primary physician as directed. Contact primary care physician or report to the closest Emergency Room if condition worsens. Plan of Treatment: Continue with present treatment and follow up plan. Pt is to keep follow up appointment as instructed and take medications as ordered. Assessment: see hospital course Prescription drug monitoring program results: PDMP reviewed with concerns iden tified Prescriptions: New oxycodone-acetaminophen [Percocet] 5-325 mg tablet 1 tab PO Q6H MDD 4 PRNQty: 30 0RF Continued atorvastatin 20 mg tablet 20 mg PO QDAY folic acid 400 mcg tablet 0.4 mg PO QDAY oxycodone-acetaminophen 5-325 mg tablet 1 tab PO Q6H PRN (Reason: pain) ergocalciferol (vitamin D2) 1,250 mcg (50,000 unit) capsule 1,250 mcg PO QWEEK gabapentin 600 mg tablet 600 mg PO HS lamivudine 100 mg tablet 100 mg PO QDAY cetirizine 10 mg tablet 10 mg PO QDAY PRN alendronate 70 mg tablet 70 mg PO QWEEK clopidogrel 75 mg tablet 75 mg PO QDAY allopurinol 100 mg tablet 100 mg PO HS aspirin 81 mg tablet,delayed release (DR/EC) 81 mg PO QDAY magnesium oxide 400 mg (241.3 mg magnesium) tablet 400 mg PO QDAY ferrous sulfate [FeroSul] 325 mg (65 mg iron) tablet 325 mg PO QDAY lisinopril 5 mg tablet 5 mg PO BID brimonidine [Alphagan P] 0.1 % drops 1 drp OPHTHALMIC (EYE) BID Patient Comments: [NO ORIGINAL SIG] lubiprostone 8 mcg capsule 8 mcg PO DAILY ritonavir 100 mg tablet 100 mg PO QDAY Lumigan 0.01 % drops 1 drp OPHTHALMIC (EYE) HS Patient Comments: [NO ORIGINAL SIG] darunavir 800 mg tablet 800 mg PO QDAY Tivicay 50 mg tablet 50 mg PO QDAY Ozempic 2 mg/dose (8 mg/3 mL) pen injector 2 mg SUBCUT WEEKLY Patient Comments: [NO ORIGINAL SIG] Orders to Discharge Patient Discharge Orders: Discharge (Routine); Ordered 10/08/24 Ordered By: Ander Agustin Follow ups/Referrals Follow ups/Referrals: Ander Agustin [Primary Care Provider] - 1 WEEK Instructions Instructions: Preventing Poor Blood Flow (Peripheral Vascular Disease), Atherosclerosis, Poor Blood Flow (Peripheral Vascular Disease): What to Know, Endovascular Therapy for Peripheral Vascular Disease: What to Know After Stand Alone Forms: Find Help Web Site, Post Hospital Follow Up Care
[2024-10-08 15:21] VITALS: PULSE 63; TEMP 97.5
[2024-10-08 18:06] VITALS: BP 102/54; RESP 19; O2SAT 94
== END 2024-10-08 18:15 | disposition home or self-care (01) ==
LOC: MED/SURG
PROVIDERS: ADMIT Surgery; ATTEND Surgery
DX: E11.65 Type 2 diabetes mellitus with hyperglycemia; I10 Essential (primary) hypertension; M10.9 Gout, unspecified; Z21 Asymptomatic human immunodeficiency virus [HIV] infection status; R26.89 Other abnormalities of gait and mobility; E78.5 Hyperlipidemia, unspecified; I70.223 Atherosclerosis of native arteries of extremities with rest pain, bilateral legs